=== PATIENT | female | born 1985 ===

== ENCOUNTER 2016-11-11 19:21 | Emergency (ER) | payer OTHER ==
[2016-11-11 19:36] VITALS: BP 139/98
--- NOTE | 2016-11-11 21:34 | EDM.PDOC ---
ED HPI GENERAL MEDICAL PROBLEM - General Chief Complaint: Head Injury Stated Complaint: FALL AT WORK Time Seen by Provider: 11/11/16 20:10 Source of Information: Reports: Patient History Limitations: Reports: No Limitations - History of Present Illness INITIAL COMMENTS - FREE TEXT/NARRATIVE: 31-year-old female presents for evaluation treatment of injuries sustained from a fall. Patient reports that the fall occurred while she was at work around 3 PM today. Patient was at work when she slipped on some cardboard. She struck the left side of her head, neck and left shoulder on a ice bin before hitting the ground. She has brought in the surveillance camera from the bar which clearly shows this. She states that she did not lose consciousness. Patient reports that she has developed a headache, neck pain and back pain which has worsen throughout the day, therefore she decided to be seen. She does have a history of migraine headaches. She reports that her left arm feels sore and heavy. She reports pain in her upper mid back and between her shoulder blades and along her left side of her neck. She also has a headache. She denies any blurry vision, double vision, syncopal episodes, nausea, vomiting, chest pain, shortness of breath, abdominal pain, change in speech or change in gait. Patient is healthy with no known medical conditions. She is not on any blood thinners. C-collar placed by nursing staff prior to my exam. Headache Pain Score (Numeric/FACES): 5 Neck Pain Score (Numeric/FACES): 5 Left Shoulder Pain Score (Numeric/FACES): 5 Lower Back Pain Score (Numeric/FACES): 5 - Related Data Allergies Allergy/AdvReac Type Severity Reaction Status Date / Time Penicillins Allergy Hives Verified 11/11/16 19:32 Home Meds: Home Meds Norethindrone AC-Eth Estradiol [Junel 1 mg-20 Mcg Tablet] 1 tab PO DAILY [History] Past Medical History - Past Health History Medical/Surgical History: Denies Medical/Surgical History Social & Family History - Tobacco Use Smoking Status *Q: Never Smoker - Recreational Drug Use Recreational Drug Use: No ED ROS GENERAL - Review of Systems Review Of Systems: See Below HEENT: Denies: Dental Pain, Nosebleed Respiratory: Denies: Shortness of Breath Cardiovascular: Denies: Chest Pain GI/Abdominal: Denies: Abdominal Pain, Nausea, Vomiting Musculoskeletal: Reports: Neck Pain, Arm Pain (left), Back Pain (upper to mid back) Neurological: Reports: Headache. Denies: Numbness, Syncope, Tingling, Trouble Speaking, Difficulty Walking, Change in Speech, Gait Disturbance ED EXAM, HEAD INJURY - Physical Exam Exam: See Below Exam Limited By: No Limitations General Appearance: Alert, WD/WN, No Apparent Distress Head: Atraumatic, Normocephalic Nexus Criteria: No: Posterior, Midline Cervical Tenderness, Evidence of Intoxication, Altered Level of Consciousness, Focal Neurological Deficit, Painful Distraction Injuries Eyes: Bilateral Eye: EOMI, PERRL Ears: Normal External Exam Nose: Normal Inspection Throat/Mouth: Normal Inspection, Normal Lips, Normal Voice, No Airway Compromise Neck: Normal Alignment, Normal Inspection, Tender Lateral Respiratory: No Respiratory Distress, Lungs Clear, Normal Breath Sounds Cardiovascular: Normal Peripheral Pulses, Regular Rate, Rhythm, No Murmur GI/Abdominal Exam: Soft, Non-Tender Back Exam: Normal Inspection, Paraspinal Tenderness (left rhomboid muscles), Vertebral Tenderness (t3-5) Extremities: Normal Inspection, Normal Range of Motion Neurologic: Alert, Normal Mood/Affect Skin: Normal Color, Warm/Dry - Satnam Coma Score Best Eye Response (Alfred): (4) Open Spontaneously Best Verbal Response (Alfred): (5) Oriented Best Motor Response (Satnam): (6) Obeys Commands Course - Vital Signs Last Recorded V/S: Last Vital Signs Temp 36.7 C 11/11/16 19:32 Pulse 91 11/11/16 19:32 Resp BP 139/98 H 11/11/16 19:32 Pulse Ox 100 11/11/16 19:32 - Orders/Labs/Meds Orders: Active Orders 24 hr Category Date Time Status Cervical Spine wo Cont [CT] Stat Exams 11/11/16 19:50 Taken Head wo Cont [CT] Stat Exams 11/11/16 19:50 Taken Shoulder Comp Lt [CR] Stat Exams 11/11/16 19:50 Taken Thoracic Spine wo Cont [CT] Stat Exams 11/11/16 19:50 Taken Labs: Laboratory Tests 11/11/16 11/11/16 Range/Units 20:05 20:06 WBC 6.88 (3.98-10.04) K/mm3 RBC 4.29 (3.98-5.22) M/mm3 Hgb 12.2 (11.2-15.7) gm/L Hct 37.1 (34.1-44.9) % MCV 86.5 (79.4-94.8) fl MCH 28.4 (25.6-32.2) pg MCHC 32.9 (32.2-35.5) g/dl RDW Std Deviation 43.0 (36.4-46.3) fL Plt Count 304 (182-369) K/mm3 MPV 9.8 (9.4-12.3) fl Neut % (Auto) 54.1 (34.0-71.1) % Lymph % (Auto) 36.6 (19.3-51.7) % Meriwether % (Auto) 6.3 (4.7-12.5) % Eos % (Auto) 2.6 (0.7-5.8) Baso % (Auto) 0.3 (0.1-1.2) % Neut # (Auto) 3.72 (1.56-6.13) K/mm3 Lymph # (Auto) 2.52 (1.18-3.74) K/mm3 Meriwether # (Auto) 0.43 H (0.24-0.36) K/mm3 Eos # (Auto) 0.18 (0.04-0.36) K/mm3 Baso # (Auto) 0.02 (0.01-0.08) K/mm3 HCG, Qual Negative (NEGATIVE) - Radiology Interpretation Free Text/Narrative:: CT of the head without contrast impression per [facility] no acute findings. CT of the cervical spine impression per [facility] no acute findings. CT of the thoracic spine impression per [facility]. No acute findings. X-ray of the left shoulder shows no acute fractures or dislocations. - Re-Assessments/Exams Free Text/Narrative Re-Assessment/Exam: 11/11/16 21:[address] and x-ray results with the patient. She likely has whiplash injury. I asked if she felt comfortable utilizing Tylenol and Motrin. She states that she feels she needs something a little bit stronger is needed for her current pain. I prescribed her 10 norco from [facility]. We will discharge her home at this time. Discharge instructions as documented. Departure - Departure Time of Disposition: 21:29 Disposition: Home, Self-Care 01 Condition: Good Clinical Impression: Fall Qualifiers: Encounter type: initial encounter Qualified Code(s): W19.XXXA - Unspecified fall, initial encounter Whiplash injury Qualifiers: Encounter type: initial encounter Qualified Code(s): S13.4XXA - Sprain of ligaments of cervical spine, initial encounter - Discharge Information Instructions: Cervical Sprain, [id number] Referrals: Angelica Ordonez PA-C [Primary Care Provider] - Forms: ED Department Discharge Additional Instructions: Rx for norco 5-325 mg tabs #10 given through [facility] Take [id number] ibuprofen as needed for pain relief. For pain not relieved by ibuprofen you may take Melcroft one tablet every 4-6 hours. norco can be habit-forming, I recommend you take as few of these as needed to controlyouer pain. Do not drive or operate machinery within 12 hours of taking the Melcroft. Expect to be sore for the next week. The first 3 days would be the worst. If your symptoms persist beyond one week I recommend you follow-up with your primary care provider. Utilize ice or heat for additional symptom relief. may also try topical products such as icy hot or BenGay. You may see a chiropractor a few for additional symptom relief. Please return to the ER if your symptoms change or worsen. - My Orders Last 24 Hours: My Active Orders 11/11/16 19:50 Cervical Spine wo Cont [CT] Stat Head wo Cont [CT] Stat Shoulder Comp Lt [CR] Stat Thoracic Spine wo Cont [CT] Stat - Assessment/Plan Last 24 Hours: My Active Orders 11/11/16 19:50 Cervical Spine wo Cont [CT] Stat Head wo Cont [CT] Stat Shoulder Comp Lt [CR] Stat Thoracic Spine wo Cont [CT] Stat
--- NOTE | 2016-11-12 08:39 | CR ---
Left shoulder: Three views of the left shoulder were obtained. Comparison: No previous shoulder exam. Glenohumeral joint and acromioclavicular joint appear unremarkable. No fracture, dislocation or other bony abnormality is seen. Impression: 1. No abnormality is identified on three-view left shoulder study. Diagnostic code #1
--- NOTE | 2016-11-12 08:39 | CT ---
CT thoracic spine Technique: Multiple axial sections through the thoracic spine were obtained. Reconstructed sagittal and coronal images were reviewed. Findings: Vertebral body heights are maintained. Mild anterior endplate osteophytes are seen within the mid thoracic spine. No bony central or bony neural foraminal stenosis is seen. Posterior ribs are intact. Mild degenerative change is seen within the lower apophyseal joints within the thoracic spine. No fracture or subluxation is seen. Impression: 1. Mild degenerative change. Nothing acute is identified on CT study of the thoracic spine. Diagnostic code #2 I agree with preliminary report issued by [facility] ([facility] preliminary report dictated on 11/11 17, 10:15 PM Central Time)
--- NOTE | 2016-11-12 08:39 | CT ---
Head CT Technique: Multiple axial sections through the brain were obtained. Intravenous contrast was not utilized. Comparison: No previous intracranial imaging. Findings: Ventricles along with basal cisterns and sulci over the convexities are within normal limits for the patient's age. No abnormal parenchymal densities are seen. No evidence of intracranial hemorrhage. No midline shift or mass effect is seen. Bone window settings were reviewed which show the visualized sinuses to appear clear. No acute calvarial abnormality is seen. Impression: 1. No acute intracranial abnormality is identified on noncontrast head CT exam. Diagnostic code #1 Agree with preliminary report issued by [facility] ([facility] preliminary report dictated on 11/11/16, 10:12 PM Central Time)
--- NOTE | 2016-11-12 08:39 | CT ---
CT cervical spine Technique: Multiple axial sections were obtained from above C1 inferiorly to the top of T2. Reconstructed sagittal and coronal images were reviewed. Findings: Visualized mastoid sinuses and middle ear cavities are clear. Posterior skull base is intact. Vertebral body heights and disc spaces are maintained. Vertebral bodies and posterior arches are intact with no fracture being seen. No bony central or bony neural foraminal stenosis. No abnormal subluxation is seen on the reconstructed sagittal images. Impression: 1. No abnormality is identified on CT study of the cervical spine. Diagnostic code #1 Agree with preliminary report issued by [facility] ([facility] preliminary report dictated on 11/11/16, 10:14 PM Central Time)
== END 2016-11-11 21:45 | disposition home or self-care (01) ==
LOC: JD.ED 19:21
DX: S13.4XXA Sprain of ligaments of cervical spine, initial encounter (principal); Z88.0 Allergy status to penicillin; W01.198A Fall on same level from slipping, tripping and stumbling with subsequent striking against other object, initial encounter
CPT/HCPCS: 36415; 70450; 70450-26; 72125; 72125-26; 72128; 72128-26; 73030-26-LT; 73030-LT; 84703; 85025; 99284; 99284-25